=== PATIENT | male | born 1980 | race Caucasian/White ===

== ENCOUNTER 2021-01-25 17:16 | Emergency (ER) | payer OTHER, SELFPAY ==
[2021-01-25 17:25] VITALS: BP 150/92; PULSE 67; RESP 18; TEMP 36.7; O2SAT 98
--- NOTE | 2021-01-25 17:30 | DI.RAD_ITS ---
EXAM: XR CLAVICLE LT CLINICAL HISTORY: Fall, Deformity, R/O acute Fx, has broken before TECHNIQUE: 2D digital imaging was performed. COMPARISON: No exams were available for comparison FINDINGS: BONES: There is an acute comminuted fracture at the junction of the middle and distal thirds of the l eft clavicle. Medial fracture fragment is superiorly located relative to the lateral fracture fragme nt. There is overriding of the fracture. No bony destructive lesion is seen. JOINTS: The acromioclavicular joint is intact. Degenerative changes are seen at the AC joint. SOFT TISSUE: Normal. IMPRESSION: Acute left clavicular fracture. DATA REPOSITORY: RADIATION DOSE DELIVERED:
--- NOTE | 2021-01-25 17:30 | ED.GENADUL_ITS ---
Discharge Plan Disposition Patient Disposition: HOME Condition: Stable Discharge Details Clinical Impression: Displaced fracture of shaft of left clavicle Primary Care Provider: Mariam,Local ED Provider: Faby Zaidi Home Meds and New Rx's Prescriptions: No Action No Known Home Meds RF: 0 Discharge Instructions Instructions: Clavicle Fracture (ED) Additional Instructions: Wear sling and swath daily for immobilization of injury and comfort. Ice as tolerated. Please take Tylenol or Ibuprofen with food every 4-6 hours as needed for pain and swelling. Follow up with orthopedic care provider in 3-5days. Return to ED sooner if any worsening or concerns. Return to the ED immediately for any cold, blue, numbness or tingling to your left hand, if any worsening purple color occurs or puckering over the skin of your left clavicle. Increase oral fluids. The orthopedic surgeon Dr. Barrera will give you a call to discuss options for possible surgical repair. If you do not hear from him by Wednesday please call the office. 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 Patient states that he fell a pproximately 2 hours prior to arrival landing on his left shoulder. He does have a history of a left broken clavicle in the past. He denies any midline C- spine, T-spine or L-spine tenderness. No shortness of breath, no elbow tenderness noted with palpation. Distal radial pulses are intact, extremities pink warm dry cap refill less than 2 seconds. He has no other injuries noted. Did not hit his head, no loss of consciousness. Patient did take some Tylenol prior to arrival. At this time he is alert and oriented x4, ambulatory in department, and pain is well controlled. 1743: X-ray of left clavicle ordered at this time, patient was offered ice packs or ibuprofen which he declined at this time. Imaging protocol: XR Left clavicle complete. Any number of views. COMPARISON: No relevant prior studies available. FINDINGS: Bones/joints: Comminuted fracture of the distal shaft of the left clavicle. The medial fragment is displaced superiorly and over riding the distal fragment. 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 Soft tissues: Normal. IMPRESSION: Comminuted displaced fracture of the distal shaft of the left clavicle. Thank you for allowing us to participate in the care of your patient. Dictated and Authenticated by: Leesa Rodriguez MD Discussed case with orthopedic surgeon on-call Fermin Barrera he was able to personally view the images. He does recommend possible surgical repair and Covid testing for pre-procedure. Discussed x-ray results and plan for possible surgery discussion with orthopedic surgeon Fermin Barrera, patient verbalizes understanding. Patient placed in a sling and swath. Discussed strict return instructions including worsening area of skin over the fracture, deterioration circulation to his extremity, patient verbalized understanding. HPI General Mode of arrival: ambulatory . Date/Time Provider Initiated Documentation: 01/25/21 17:29 . Limitations to Documentation: no limitations . Information obtained by: patient . 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 Patient states that he fell approximately 2 hours prior to arrival landing on his left shoulder. He does have a history of a left broken clavicle in the past. He denies any midline C-spine, T-spine or L-spine tenderness. No shortness of breath, no elbow tenderness noted with palpation. Distal radial pulses are intact, extremities pink warm dry cap refill less than 2 seconds. He has no other injuries noted. Did not hit his head, no loss of consciousness. Patient did take some Tylenol prior to arrival. At this time he is alert and oriented x4, ambulatory in department, and pain is well controlled. Related Data Home Medications Medication Instructions Recorded Confirmed Unknown [No Known Home Meds] 01/25/21 01/25/21 Allergies Allergy/AdvReac Type Severity Reaction Status Date / Time No Known Allergies Allergy Unverified 01/25/21 17:29 General Stated Complaint: Orthopedic OSKAR: 3 Review of Systems All systems reviewed & are unremarkable except as noted in HPI and below Musculoskeletal Musculoskeletal: Reports as per HPI, Reports deformity (Left clavicle), Reports arthralgias, Denies numbness, Reports stiffness and Denies tingling Neurologic Neurologic: Denies numbness and Denies tingling FOR[facility]LY [facility] Social History Smoking/Tobacco Use Status: Never Smoking risk assessment performed?: Yes Alcohol Intake: current Alcohol Intake frequency: a few times a week Drug use: Occasionally Substance use type: marijuana Do you feel safe at home: Yes Do you feel safe in your relationship?: Yes Exam Narrative Exam Narrative: Constitutional: Alert and oriented x3. Appears stated age. Christina l body habitus. Head: Normocephalic, no trauma. Eyes: Pupils PERRLA, Red reflex noted, EOM's intact. Eyelids symmetrical without lesions, discharge, or swelling. Chest: RRR, Normal S1, S2, distal pulses intact. Resp: Lungs clear to auscultation bilaterally, no wheezes, rales, or rhonchi. Musculoskeletal: Normal gait, 5/5 strength to all four extremities. There is deformity noted to his left clavicle, no palpable shoulder tenderness, no palpable rib tenderness, elbow joint is intact, no obvious deformity no tenderness with palpation, radial pulses are intact, full range of motion noted to his elbow, cap refill less than 2 seconds distally to the injury. No midline C, T, L-spine tenderness. Skin: No suspicious rashes or lesions. Capillary refill less than 2 sec. Neurologic: Cranial nerves II-XII intact. Alert and oriented x 3. Course Vital Signs Vital signs: Vital Signs Temperature 36.7 C 01/25/21 17:25 Pulse 67 01/25/21 17:25 Respiratory Rate 18 01/25/21 17:25 Blood Pressure 150/92 H 01/25/21 17:25 Pulse Oximetry 98 01/25/21 17:25 Temperature 36.7 C 01/25/21 17:25 Temperature Source Temporal Artery Scan 01/25/21 17:25 Pulse 67 01/25/21 17:25 Respiratory Rate 18 01/25/21 17:25 Blood Pressure 150/92 H 01/25/21 17:25 Blood Pressure Position Sitting 01/25/21 17:25 Pulse Oximetry 98 01/25/21 17:25 Oxygen Delivery Method Room Air 01/25/21 17:25 Oxygen Flow Rate 0 01/25/21 17:25 Pain Level 5 01/25/21 17:25
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
[2021-01-25 18:31] LABS: Source Nasal/Nares
[2021-01-25 19:14] LABS: COVID-19 PCR Negative (Negative); Influenza A PCR Negative (Negative); Influenza B PCR Negative (Negative); RSV PCR Negative (Negative)
== END 2021-01-25 18:40 | disposition home or self-care (01) ==
PROVIDERS: Emergency Provider Registered Nurse Emergency
DX: S42.022A Displaced fracture of shaft of left clavicle, initial encounter for closed fracture (principal); V00.321A Fall from snow-skis, initial encounter; Y93.23 Activity, snow (alpine) (downhill) skiing, snowboarding, sledding, tobogganing and snow tubing; Y99.0 Civilian activity done for income or pay; Z20.822 Contact with and (suspected) exposure to COVID-19
CPT/HCPCS: 99283; 73000

== ENCOUNTER 2021-01-28 11:54 | Day surgery (SDC) | payer OTHER, SELFPAY ==
[2021-01-28] VITALS (7 sets, daily range): BP systolic 98–151; BP diastolic 44–87; PULSE 50–57; RESP 14–18; TEMP 36–37; O2SAT 95–99
[2021-01-28] MEDS: Lactated Ringers 1,000 ML 80 ML IV (12:45)
--- NOTE | 2021-01-28 13:03 | HPE_ITS ---
Date of service: 01/28/21 Time of Service: 13:04 Assessment and Plan Assessment and plan (1) Displaced fracture of shaft of left clavicle: Status: Acute Assessment and plan: Amanuel is a 40-year-old who has a displaced clavicle fracture on the left side. Given the mild displacement is active lifestyle did recommend operative fixation. He also preferred operative fixation as he is treated a previous clavicle fracture nonoperatively. I reviewed the risk of the procedure to include bleeding, infection, pain, stiffness, damage to nerves and vessels, damage to muscle tendons, heart prominence, or failure, nonunion, nonunion, anterior chest wall numbness, need for repeat procedures. Despite these risk, he elects to proceed. 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 I discussed case him over the phone prior to today. Today he reports pain about the left shoulder. He has notable deformity. He denies numbness or tingling down the left arm. He has had a previous history of shoulder trauma with some restricted motion and some arthritis in the left shoulder. He has no new symptoms from those documented in the telehealth visit. Review of Systems All systems reviewed & are unremarkable except as noted in HPI and below PFSH Medical History No pertinent past medical history Surgical History History of lingual frenulectomy pt. reports it was shortened History of wisdom tooth extraction Social History Smoking/Tobacco Use Status: Never Smoking risk assessment performed?: Yes Alcohol Intake: current Alcohol Intake frequency: a few times a week Alcohol type: beer and hard liquor Drug use: Occasionally Substance use type: marijuana Details: alcohol: t-3, one drink, marijuana: unknown Current gender identity: male Do you feel safe at home: Yes Do you feel safe in your relationship?: Yes Meds Home Medications and Allergies Allergies Allergy/AdvReac Type Severity Reaction Status Date / Time No Known Allergies Allergy Unverified 01/28/21 12:07 Home Medications Medication Instructions Recorded Confirmed Type acetaminophen [Tylenol Extra 500 01/28/21 History Strength] Exam Const General: cooperative, healthy appearing, comfortable and no acute distress Nutritional Appearance: average body habitus Orientation: alert, awake and oriented x3 Resp Auscultation: clear to auscultation bilaterally Cardio Palpation: normal PMI Rate: regular rate Extrem Other: Evaluation of the left shoulder shows notable ecchymosis and a prominent proximal fragment of the clavicle. There is pain to palpation. No attempted shoulder motion was tried. Sensation intact light touch of the axillary median, radial, ulnar nerve. Results Labs Labs: X-ray of the left clavicle demonstrates notable displacement with the least 2 cm of shortening and superior displacement of the proximal fragment. Some mild comminution. Last Vital Signs Temp 37.0 C 01/28/21 12:20 Pulse 57 L 01/28/21 12:20 Resp 16 01/28/21 12:20 BP 151/80 H 01/28/21 12:20 Pulse Ox 98 01/28/21 12:20
[2021-01-28] MEDS: ceFAZolin 2 GM/50 ML BAG IVPB (13:48)
[2021-01-28] MEDS: EPINEPHrine 1 MG/ML AMP pres-free (14:03)
[2021-01-28] MEDS: Bupivacaine 0.25% Pres-Free 30 ML VIAL (14:03)
--- NOTE | 2021-01-28 14:50 | DI.RAD_ITS ---
EXAM: XR CLAVICLE LT LIMITED 1V CLINICAL HISTORY: FX LEFT CLAVICLE TECHNIQUE: COMPARISON: No exams were available for comparison FINDINGS: C-arm fluoroscopy was utilized by Dr. Barrera during open reduction and internal fixation of fractur e of the left clavicle. Hard copy shows plate and screw fixation in place. Fluoro time, 21 seconds. IMPRESSION: RADIATION DOSE DELIVERED: Total DLP
--- NOTE | 2021-01-28 15:58 | W.PM.DSUDISC ---
Discharge Plan Disposition Patient Disposition: HOME Condition: Good Discharge Details Reason For Visit: Left Clavicle Fracture Attending Provider: Fermin Barrera Primary Care Provider: Armando Mercado Home Meds and New Rx's Prescriptions: New acetaminophen 500 mg tablet 500 mg PO Q6H PRN PRN (Reason: pain) Qty: 40 RF: 3 hydrocodone-acetaminophen 5-325 mg tablet 1 tab PO Q4H PRN (Reason: pain) Qty: 10 RF: 0 ibuprofen 600 mg tablet 600 mg PO TID PRN (Reason: pain) Qty: 90 RF: 3 Discontinued acetaminophen [Tylenol Extra Strength] 500 mg Capsule 500 RF: 0 Discharge Instructions Additional Instructions: Activity: You may use the hand/elbow/fingers as tolerated right away. You should stay in the sling most of the time for comfort but feel free to remove the sling and let the arm rest on pillows or your lap. I would recommend using the sling at night as well as pillows to cradle the arm and keep it from moving. Gentle dangling and pendulums of the shoulder are okay to do but range of motion exercises will be explained at your follow-up visit. Apply ice to the shoulder as needed for pain relief and swelling control (usually 20-30 min and 20-30 min off). Dressings: The Mepilex dressing may stay in place until your follow-up appointment. It may get wet after three days but if it ges soaked it usually will need to be replaced. Most people will cover it with some Saran or Cling wrap to keep it from getting too wet. If it gets soiled, wet, or peels off, just place a light gauze dressing in its place. The sutures are buried in the skin. Medications: - You should take Tylenol (500mg every 6 hours) and Ibuprofen (600mg every 8 hours) as needed for baseline pain. - You have a stronger medication (Hydrocodone) that you can take for breakthrough pain. Follow-up: 7-10 days If you have any acute concerns or questions, please do not hesitate to contact the office at [phone]. You may contact Dr. Barrera with any questions after hours through the hospital at [phone] or on his cell phone at [phone]. Equipment/Supplies: Sling Shower/Bathe:: 72 hours Diet:: As Tolerated Discharge Orders Discharge Orders: Discharge Order (Routine); Ordered 01/28/21 Ordered By: Fermin Barrera DS: Diagnosis Discharge Diagnosis (1) Displaced fracture of shaft of left clavicle: Status: Acute
--- NOTE | 2021-01-29 06:35 | W.PM.OP ---
Date of service: 01/28/21 Time of Service: 15:12 Operative Note Operative Note DATE OF PROCEDURE: 01/28/21 PRE-OP DIAGNOSIS: Clavicle Fracture - Left POST-OP DIAGNOSIS: same PROCEDURE: Open Reduction and Internal Fixation of a Clavicle Fracture - Left SURGEON: Fermin Barrera MACHINE OPERATIONS SUPERVISOR: Payal Roberto ANESTHESIA TYPE: General LMA/ETT Refer to Anesthesia Record ESTIMATED BLOOD LOSS: 20 PATHOLOGY: none sent COMPLICATIONS: None Patient was transported to: PACU Patient's condition: stable Indications: Amanuel is a 40 year old male who suffered a clavicle fracture. Due to the amount of displacement and patient's functional status I recommended operative fixation to restore length, function, and promote union. I reviewed the possible treatment options and the patient agreed to proceed with operative intervention after discussion of the risk as well which included bleeding, infection, pain, stiffness, hardware prominence, hardware failure, damage to nerves and vessels, pneumothorax, anterior chest wall numbness, need for repeat procedures, malunion, nonunion. Despite these risk, the patient agreed to proceed. Findings: There was a displaced clavicle fracture fixed with plate and screws after being openly reduced. Procedure Description: Amanuel was greeted in the preoperative holding area. Identity was confirmed the correct side was identified and marked. The consent was reviewed the patient and signed. He taken back to the PACU where a superficial cervical block was administered. He was then taken to the operating room and placed in the supine position. A general anesthetic was given. Prophylactic anabiotic's in the form of cefazolin were administered. He was then secured in the supine position on the operating room table. The head of the bed was elevated approximately 30 degrees. The head was rotated slightly towards the right to stay out of the way of the left shoulder surgery. Left shoulder was then prepped with ChloraPrep and draped in a standard fashion. C arm was brought in prior to draping to make sure that x-rays were possible. Attention was then turned to the clavicle. The proposed surgical site was anesthetized 0.25% bupivacaine. Dissection carried down with a knife into the platysma was encountered. There were no passing cutaneous branches identified. I then use electrocautery to cut through the platysma and the clavipectoral fascia down to the clavicle which is easily palpable. Once this was down the clavicle a whitfield elevator was utilized to clear off the fracture site and the bone next the fracture site. Any clotted fibrous tissue was removed. The fracture was identified and manipulated. Further dissection was carried out along the clavicle for later plate placement and manipulation of the fracture in the bone. From here there was 2 small pieces anteriorly but otherwise good fracture fragments to work with. Close reduction was then performed using lobster claws. This was then held with a K wire from outside the shoulder through the posterior aspect of the clavicle to clavicle shaft. Visual inspection was obtained and reduction was confirmed to be nearly anatomic. X-ray was also used to confirm this. I then selected a lateral clavicle plate from the [employer] clavicle plating system. The correct size plate was then placed onto the bone and confirmed to be good position. A single 3.5 mm nonlocking screw was placed, securing the medial portion of the plate. Plate was ensured to be in adequate position with minimal overhang. I then fixed the distal portion of fracture with 2.7 mm locking screws. The remainder of the medial aspect of the plate was then secured with additional nonlocking screws without difficulty. The small loosely attached pieces were then reinserted back into the respective locations under the plate. The wound was then irrigated. X-rays were utilized to confirm reduction appropriate screw positioning. The clavipectoral fascia was then closed for its length with a #1 Vicryl. The platysma was then closed with a second running 3-0 Vicryl suture. The deeper tissue was closed with a 3-0 Vicryl. The skin was closed with a #3-0 Monocryl, reinforced with skin affix skin glue and dressed with a Mepilex silver dressing. He was then positioned into a sling. He tolerated the procedure well. There were no notable complications. He is transferred to the PACU in a stable condition.
== END 2021-01-28 18:09 | disposition home or self-care (01) ==
PROVIDERS: PCP Internal Medicine; Visit Provider Student in an Organized Health Care Education/Training Program
PROC: (CPT 23515; principal; 2021-01-28 13:45)
DX: S42.022A Displaced fracture of shaft of left clavicle, initial encounter for closed fracture (principal); G89.18 Other acute postprocedural pain; X58.XXXA Exposure to other specified factors, initial encounter; Y99.0 Civilian activity done for income or pay
CPT/HCPCS: 23515; 76942; NC; 73000; J0171; J0690; J1100; J1885; J2001; J2250; J2405; J2704; L3650

== ENCOUNTER 2021-02-07 10:23 | Outpatient (CLI) | payer OTHER, SELFPAY ==
--- NOTE | 2021-02-07 09:40 | DI.RAD_ITS ---
EXAM: XR CLAVICLE LT INDICATION: post op. COMPARISON: CR,XR XR CLAVICLE LT from 01/25/2021 XR CLAVICLE LT LIMITED 1V from 01/28/2021 XR CLAVICLE LT LIMITED 1V from 01/28/2021 TECHNIQUE: 2D digital imaging was performed. FINDINGS: A fixation plate is again noted over the mid to distal clavicle. There has been no change in fractu re or hardware alignment. DATA REPOSITORY: RADIATION DOSE DELIVERED:
== END 2021-02-07 10:24 | disposition home or self-care (01) ==
LOC: DIORS 10:23
PROVIDERS: PCP Internal Medicine; Referring Provider Internal Medicine; Visit Provider Physician Assistant
DX: S42.022D Displaced fracture of shaft of left clavicle, subsequent encounter for fracture with routine healing (principal)
CPT/HCPCS: 73000

== ENCOUNTER 2021-03-07 10:56 | Outpatient (CLI) | payer OTHER, SELFPAY ==
--- NOTE | 2021-03-07 10:30 | DI.RAD_ITS ---
EXAM: XR CLAVICLE LT LIMITED 1V CLINICAL HISTORY: F/U FRACTURE. TECHNIQUE: 2D digital imaging was performed. COMPARISON: CR XR CLAVICLE LT from 02/07/2021 FINDINGS: BONES: There are stable post operative changes present. No new fracture or dislocation. JOINTS: The joint spaces are well maintained. No joint effusion is present. Tiny calcifications randolph cent to the humeral head which may represent calcific tendinitis. SOFT TISSUE: Normal. IMPRESSION: Stable postoperative changes. DATA REPOSITORY: RADIATION DOSE DELIVERED:
== END 2021-03-07 10:57 | disposition home or self-care (01) ==
LOC: DIORS 10:56
PROVIDERS: PCP Internal Medicine; Referring Provider Internal Medicine; Visit Provider Student in an Organized Health Care Education/Training Program
DX: S42.022D Displaced fracture of shaft of left clavicle, subsequent encounter for fracture with routine healing (principal)
CPT/HCPCS: 73000

== ENCOUNTER 2021-04-25 10:43 | Outpatient (CLI) | payer OTHER, SELFPAY ==
--- NOTE | 2021-04-25 09:15 | DI.RAD_ITS ---
Exam(s) XR CLAVICLE LT EXAM: XR CLAVICLE LT CLINICAL HISTORY: F/U FRACTURE TECHNIQUE: COMPARISON: CR XR CLAVICLE LT LIMITED 1V from 03/07/2021 FINDINGS: Two views were obtained and show previous described midclavicular fracture with plate and screw fixat ion in place. Alignment appears unchanged comparison previous examination March 07. Note is again made of soft tissue calcifications projected in the region of the supraspinatus tendon. IMPRESSION: RADIATION DOSE DELIVERED: Total DLP
== END 2021-04-25 10:44 | disposition home or self-care (01) ==
LOC: DIORS 10:45
PROVIDERS: PCP Internal Medicine; Visit Provider Student in an Organized Health Care Education/Training Program
DX: S42.022D Displaced fracture of shaft of left clavicle, subsequent encounter for fracture with routine healing (principal)
CPT/HCPCS: 73000

== ENCOUNTER → 2022-08-17 02:31 | Outpatient (CLI) | payer BC, SELFPAY ==
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
== END ==
PROVIDERS: PCP Internal Medicine; Visit Provider Physician Assistant
DX: M79.641 Pain in right hand (principal)
CPT/HCPCS: 73130

== ENCOUNTER 2024-08-20 18:45 | Emergency (ER) | payer BC, SELFPAY ==
[2024-08-20 18:48] VITALS: BP 139/79; PULSE 62; RESP 18; TEMP 36.9; O2SAT 98
--- OUTSIDE RECORDS SUMMARY | 2024-08-20 19:04 | XMS_ITS ---
Author Organization Unknown Address [address] [place] [address] [phone] Phone Care Team Providers Care Artificial Flower Maker Name Role Phone LAMELL ZAIN Temple Attending Unavailable JH CINTRON Primary Unavailable Social History Type Status Start Date End Date Code Code Syst em Sex Male Hospital Discharge Instructions Should you have any questions prior to discharge, please contact a member of your healthcare team. If you have left the hospital and have any questions, please contact your primary care physician. Reason For Referral No Data Found Plan of Treatment No Data Found Encounters Encounter Diagnosis Start Date Code Code Sys tem 05/22/2024 [id number] SNOMED-CT Personal Care Team Section Performer Name Performer Role Active Date Inactive Da te
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
[2024-08-20] MEDS: Cyclobenzaprine 10 MG TAB 5 MG PO (20:46)
[2024-08-20] MEDS: Lidocaine 5% Patch 1 PATCH TP (20:47)
[2024-08-20] MEDS: Ketorolac 15 MG/ML VIAL IM (20:47)
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
== END 2024-08-20 21:31 | disposition home or self-care (01) ==
PROVIDERS: Emergency Provider Emergency Medicine; PCP Physician Assistant
DX: M25.511 Pain in right shoulder (principal); V18.4XXA Pedal cycle driver injured in noncollision transport accident in traffic accident, initial encounter; Y92.482 Bike path as the place of occurrence of the external cause; Y93.55 Activity, bike riding
CPT/HCPCS: 96372; 99283; 73030; 73060; J1885

== ENCOUNTER 2024-08-29 01:36 | Outpatient (CLI) | payer BC, SELFPAY ==
--- NOTE | 2024-08-29 12:20 | DI.MRI_ITS ---
Exam(s) MR UPPER JOINT RT WO EXAM: MR UPPER JOINT RT WO CLINICAL HISTORY: INJURY OF RIGHT SHOULDER,[id number]. TECHNIQUE: Multiplanar multisequence MRI was performed. COMPARISON: Plain films 20 August 2024 FINDINGS: BONES: Edema in the marrow of the distal clavicle. There is no discrete fracture. JOINTS:The acromioclavicular joint shows some fluid. Fluid extends superior to the AC joint. The gl enohumeral joint is normal. TENDONS: Supraspinatus: Coarse calcification seen anterior consistent with calcific tendinosis versus. No pan dence of tendon tear. Infraspinatus: Unremarkable. Subscapularis: Unremarkable. Teres Minor: Unremarkable. Biceps and [place]: Unremarkable. MUSCLES: Unremarkable. GLENOID LABRUM: Unremarkable on this noncontrast examination. OTHER: Subacromial and subdeltoid bursae shows minimal edema . IMPRESSION: Edema in the distal clavicle consistent with contusion. Surrounding fluid. Findings could indicate mild on acromioclavicular joint sprain. Calcific tendinosis of the supraspinatus. DATA REPOSITORY:
== END 2024-08-29 01:56 ==
LOC: DI 01:36
PROVIDERS: PCP Physician Assistant; Visit Provider Student in an Organized Health Care Education/Training Program
DX: S49.91XA Unspecified injury of right shoulder and upper arm, initial encounter (principal); X58.XXXA Exposure to other specified factors, initial encounter
CPT/HCPCS: 73221

== ENCOUNTER 2024-10-18 15:16 | Outpatient (CLI) | payer BC, SELFPAY ==
--- NOTE | 2024-10-18 08:00 | DI.RAD_ITS ---
Exam(s) XR SHOULDER RT 1V EXAM: XR SHOULDER RT 1V CLINICAL HISTORY: RIGHT SHOULDER PAIN. TECHNIQUE: 2D digital imaging was performed. COMPARISON: CR,XR XR SHOULDER RT COMPLETE 2+V from 08/20/2024 FINDINGS: Single neutral AP view, compared to 08/20/2024 No evidence of acute fracture or dislocation. There is a 1.2 x 0.8 cm chunk of calcification again noted in the subacromial space above and medial to the greater tuberosity of the humeral head consistent with calcific tendinitis/bursitis. Appears similar to previous. There are no obvious degenerative changes in the glenohumeral joint. Mild degenerative changes noted in the AC joint. No osseous lesions IMPRESSION: Calcific rotator cuff tendinitis again noted. DATA REPOSITORY: RADIATION DOSE DELIVERED:
== END 2024-10-18 15:17 | disposition home or self-care (01) ==
LOC: DIORS 15:17
PROVIDERS: PCP Physician Assistant; Visit Provider Student in an Organized Health Care Education/Training Program
DX: M75.31 Calcific tendinitis of right shoulder (principal)
CPT/HCPCS: 73020